=== PATIENT | female | born 1945 | race Two or more races ===

== ENCOUNTER 2021-06-07 12:30 | Inpatient (IN) | payer OTHER ==
[~2021-06-07] VITALS: Ht 157.5 cm; Wt 67.1 kg
[2021-06-07] MEDS ORDERED: JANUMET 50-5001 EACH PO (15:16)
[2021-06-07] MEDS ORDERED: NORVASC PO (15:17)
[2021-06-07] MEDS ORDERED: TOPRO PO (15:17)
[2021-06-07] MEDS ORDERED: HYZAA PO (15:18)
[2021-06-11] MEDS ORDERED: TOPROL XL25 M1 PO (09:23)
[2021-06-11] MEDS ORDERED: NORVASC2.5 M1 PO (09:24)
[2021-06-11] MEDS ORDERED: HYZAAR 50-12.51 EACH (09:24)
[2021-06-11] MEDS ORDERED: COLACE100 MG PO (09:38)
[2021-06-11] MEDS ORDERED: MEDROLPACK PO (09:39)
[2021-06-11] MEDS ORDERED: AMOX-CLAV 875-1 EACH PO (09:39)
[2021-06-11] MEDS ORDERED: PERCOCET 5-3251 EACH PO (09:39)
[2021-06-11] MEDS ORDERED: NEURONTIN800 MG PO (09:39)
== END 2021-06-13 07:57 | disposition home or self-care (01) | DRG 455 ==
LOC: O/R 06-11 06:06 → SURH 06-11 06:06
PROVIDERS: ADMIT Orthopaedic Surgery Orthopaedic Surgery of the Spine; ATTEND Orthopaedic Surgery Orthopaedic Surgery of the Spine
PROC: 0SG10J1 Fusion of 2 or more Lumbar Vertebral Joints with Synthetic Substitute, Posterior Approach, Posterior Column, Open Approach (ICD-10-PCS; 2021-06-11)
PROC: 0QB30ZZ Excision of Left Pelvic Bone, Open Approach (ICD-10-PCS; 2021-06-11)
PROC: 07DR0ZZ Extraction of Iliac Bone Marrow, Open Approach (ICD-10-PCS; 2021-06-11)
PROC: 0SG10A0 Fusion of 2 or more Lumbar Vertebral Joints with Interbody Fusion Device, Anterior Approach, Anterior Column, Open Approach (ICD-10-PCS; principal; 2021-06-11 11:00)
DX: M43.16 Spondylolisthesis, lumbar region (principal); M48.062 Spinal stenosis, lumbar region with neurogenic claudication; I10 Essential (primary) hypertension; E11.9 Type 2 diabetes mellitus without complications

== ENCOUNTER 2022-08-09 10:50 | Inpatient (IN) | payer OTHER ==
[~2022-08-09] VITALS: Ht 157.5 cm; Wt 67.6 kg
[~2022-08-09 10:50] MED LIST: AMOX-CLAV 875-1 EACH PO; COLACE100 MG PO; HYZAA PO; HYZAAR 50-12.51 EACH; JANUMET 50-5001 EACH PO; MEDROLPACK PO; NEURONTIN800 MG PO; NORVASC PO; NORVASC2.5 M1 PO; PERCOCET 5-3251 EACH PO; TOPRO PO; TOPROL XL25 M1 PO
[2022-08-09] MEDS ORDERED: LANTUS (11:55)
[2022-08-13] MEDS ORDERED: MEDROLPACK PO (13:23)
[2022-08-13] MEDS ORDERED: PERCOCET 5-3251 EACH PO (13:23)
[2022-08-13] MEDS ORDERED: NEURONTIN800 MG PO (13:24)
[2022-08-13] MEDS ORDERED: AMOX-CLAV 875-1 EACH PO (13:24)
[2022-08-13] MEDS ORDERED: COLACE100 MG PO (13:25)
== END 2022-08-15 14:10 | DRG 455 ==
LOC: SURH 08-13 08:22 → O/R 08-13 08:22 → SURH 08-13 11:30
PROVIDERS: ADMIT Orthopaedic Surgery Orthopaedic Surgery of the Spine; ATTEND Orthopaedic Surgery Orthopaedic Surgery of the Spine
PROC: 0SG3071 Fusion of Lumbosacral Joint with Autologous Tissue Substitute, Posterior Approach, Posterior Column, Open Approach (ICD-10-PCS; 2022-08-13)
PROC: 0ST40ZZ Resection of Lumbosacral Disc, Open Approach (ICD-10-PCS; 2022-08-13)
PROC: 0QB30ZZ Excision of Left Pelvic Bone, Open Approach (ICD-10-PCS; 2022-08-13)
PROC: 07DR0ZZ Extraction of Iliac Bone Marrow, Open Approach (ICD-10-PCS; 2022-08-13)
PROC: XRGD0R7 Fusion of Lumbosacral Joint using Custom-Made Anatomically Designed Interbody Fusion Device, Open Approach, New Technology Group 7 (ICD-10-PCS; principal; 2022-08-13 18:15)
DX: M48.07 Spinal stenosis, lumbosacral region (principal); M43.17 Spondylolisthesis, lumbosacral region; I10 Essential (primary) hypertension; E11.40 Type 2 diabetes mellitus with diabetic neuropathy, unspecified; Z79.84 Long term (current) use of oral hypoglycemic drugs